=== PATIENT | male | born 1945 | race Caucasian/White ===

== ENCOUNTER 2018-03-15 09:57 | Day surgery (SDC) | payer MEDICARE ==
[~2018-03-15] VITALS: Ht 180.3 cm; Wt 85.1 kg
[~2018-03-15 09:57] MED LIST: CARB1TAB2 PO; CLON1PAT2 TD; LEVO112T2 PO; LINA5TAB PO; LORA1TAB PO; RASA1TAB2 PO; [UNRECOGNIZED DRUG - REMARK] PO
[2018-03-15 10:38] VITALS: BP 165/92
[2018-03-15] MEDS ORDERED: LIDOCAINE-MPF 1%, 5ML ONE (11:34)
[2018-03-15] MEDS ORDERED: FENTANYL PF 100 MCG/2ML ONE ×2 (12:09)
[2018-03-15] MEDS ORDERED: MIDAZOLAM 1 MG/ML, 5ML ONE (12:09)
[2018-03-15] MEDS ORDERED: FLUMAZENIL 0.1 MG/1 ML, 5ML ONE (12:09)
[2018-03-15] MEDS ORDERED: NALOXONE 1 MG/ML, 2ML ONE (12:09)
[2018-03-15] MEDS ORDERED: CEFAZOLIN PMX 1GM/50ML 50 ML ONE (12:37)
== END 2018-03-15 14:45 | disposition home or self-care (01) ==
LOC: OUT 09:57 → EDSTATUS 12:00 → OUT 14:45
PROVIDERS: ATTEND Physician Assistant
DX: N31.8 Other neuromuscular dysfunction of bladder (principal); I10 Essential (primary) hypertension; Z87.891 Personal history of nicotine dependence
CPT/HCPCS: 75989; 76942; 99156; 99157; J0690; J2250; J3010; 51102; J2310